=== PATIENT | male | born 1975 | race American Indian/Alaskan Native ===

== ENCOUNTER 2017-07-16 23:36 | Emergency (ER) | payer OTHER ==
[2017-07-17 00:43] LABS: Basophils % (Auto) 0.6 % (0.0-1.8); Eosinophils % (Auto) 1.7 % (0.0-4.3); Hematocrit 49.3 % (35.5-45.6); Hemoglobin 15.9 gm/dl (11.8-15.2); Mean Corpuscular HGB Conc 32 % (32-34); Mean Corpuscular Hemoglobin 28 pg (28-32); Mean Corpuscular Volume 88 fl (84-94); Platelet Count 262 K/mm3 (140-440); Red Blood Count 5.63 M/mm3 (3.65-5.03); Red Cell Distribution Width 13.9 % (13.2-15.2); White Blood Count 9.3 K/mm3 (4.5-11.0)
[2017-07-17 00:57] LABS: Anion Gap 20 mmol/L; BUN/Creatinine Ratio 14.61; Blood Urea Nitrogen 19 mg/dL (9-20); Calcium 9.2 mg/dL (8.4-10.2); Carbon Dioxide 24 mmol/L (22-30); Chloride 100.9 mmol/L (98-107); Glucose 86 mg/dL (75-100); Potassium 4.2 mmol/L (3.6-5.0); Sodium 141 mmol/L (137-145)
[2017-07-17 02:47] LABS: Urine Drugs of Abuse Note Disclamer
[2017-07-17 03:00] LABS: Bilirubin,Urine NEG (Negative); Blood,Urine NEG (Negative); Ketones,Urine NEG (Negative); Leukocyte Esterase,Urine NEG (Negative); Mucus,Urine 2+ /HPF; Nitrite,Urine NEG (Negative); Protein,Urine <15 mg/dL mg/dL (Negative)
--- NOTE | 2017-07-17 06:32 | Emergency Department Report ---
ED Psych HPI - General Chief Complaint: Psych Stated Complaint: MH Time Seen by Provider: 07/17/17 06:22 Source: patient Mode of arrival: Ambulatory - History of Present Illness Initial Comments: 42 years old male history of bipolar disorder he is out of his medication for the last 2 years coming today with his his brother was a chief complaint of suicidal ideation and attempt to try to cut his left wrist. His brother stopped him. Patient denied any homicidal ideation. Denied any visual or auditory hallucination. No other complaints. MD Complaint: suicidal ideation, feels depressed -: Gradual Associated Psychiatric Symptoms: depression, suicidal ideation History of same: Yes Quality: constant Context: recent drug abuse If Self Harm: admits thoughts of, has plan, has acted on plan, self-inflicted trauma - Related Data Home Medications Medication Instructions Recorded Confirmed Last Taken No Known Home Medications [No 07/17/17 07/17/17 Unknown Reported Home Medications] Allergies Allergy/AdvReac Type Severity Reaction Status Date / Time sulfamethoxazole Allergy Shortness Verified 07/16/17 23:55 [From Bactrim] of Breath trimethoprim [From Bactrim] Allergy Shortness Verified 07/16/17 23:55 of Breath ED Review of Systems ROS: Stated complaint: MH Other details as noted in HPI Comment: All other systems reviewed and negative Constitutional: denies: chills, fever ENT: denies: throat pain Respiratory: denies: cough, orthopnea, shortness of breath, SOB with exertion Cardiovascular: denies: chest pain, palpitations Gastrointestinal: denies: abdominal pain, nausea, vomiting Neurological: denies: headache, weakness ED Past Medical Hx - Past Medical History Previous Medical History?: Yes Hx Psychiatric Treatment: Yes - Surgical History Past Surgical History?: No - Social History Smoking Status: Never Smoker Substance Use Type: None - Medications Home Medications: Home Medications Medication Instructions Recorded Confirmed Last Taken Type No Known Home Medications [No 07/17/17 07/17/17 Unknown History Reported Home Medications] ED Physical Exam - General Limitations: No Limitations General appearance: alert - Head Head exam: Present: atraumatic - Eye Eye exam: Present: normal appearance - ENT ENT exam: Present: normal exam - Neck Neck exam: Present: normal inspection. Absent: tenderness - Respiratory Respiratory exam: Present: normal lung sounds bilaterally. Absent: wheezes, rales - Cardiovascular Cardiovascular Exam: Present: regular rate, normal rhythm, normal heart sounds - GI/Abdominal GI/Abdominal exam: Present: soft. Absent: tenderness, guarding, rebound - Extremities Exam Extremities exam: Present: other (left wrist abrasions) - Neurological Exam Neurological exam: Present: alert, oriented X3, CN II-XII intact - Psychiatric Psychiatric exam: Present: depressed, manic, suicidal ideation. Absent: agitated, homicidal ideation - Skin Skin exam: Present: warm, intact ED Course Vital Signs 07/16/17 07/17/17 07/17/17 23:51 06:27 07:44 Temperature 99.1 F 98.8 F Pulse Rate 84 73 Respiratory 17 16 18 Rate Blood Pressure 127/78 Blood Pressure 116/57 [Left] O2 Sat by Pulse 99 100 99 Oximetry ED Medical Decision Making - Lab Data Result diagrams: 07/17/17 00:08 07/17/17 00:08 Critical care attestation.: If time is entered above; I have spent that time in minutes in the direct care of this critically ill patient, excluding procedure time. ED Disposition Clinical Impression: Acute psychosis, Suicidal ideation Disposition: [id number]/TX-65 PSY HOSP/PSY UNIT Is pt being admited?: No Condition: Stable Referrals: PRIMARY CARE, [Primary Care Provider] - 3-5 Days
--- NOTE | 2017-07-18 15:41 | Consultation ---
History of Present Illness - Reason for Consult Consult date: 07/18/17 Reason for consult: Mental Health Evaluation Requesting physician: SHANT COELHO - Chief Complaint Chief complaint: "I need help" - History of Present Psychiatric Illness 42 years old male history of bipolar disorder. Patient is presenting to [facility] for SI's and self injury (superficial lacerations on his left FA). Today patient is calm and cooperative during the assessment. He stated that he have not taking his medications (Risperal/Remeron) for 2 years. He stated that he was thinking about his mother who last year and had a psychotic breakdown ( psychotic behavior). He stated that he broke items throughout his brother's home. He stated that the voices was telling him to be violent and kill himself. He stated that his SI's have decreased since yesterday. He stated that he hear whispered (AH's) currently. During our conversation, the patient would cover his ears, possibly responding to some type of stimuli. He stated that he cut himself to prevent from harming other people. He denies HI's and VH's. He admitted having erratic sleep, but denies a poor appetite. He admit to smoking marijuana often, but stated he used cocaine recently to stop the voices. He denies excessive alcohol consumption (etoh). Medications and Allergies Allergies Allergy/AdvReac Type Severity Reaction Status Date / Time sulfamethoxazole Allergy Shortness Verified 07/16/17 23:55 [From Bactrim] of Breath trimethoprim [From Bactrim] Allergy Shortness Verified 07/16/17 23:55 of Breath Home Medications Medication Instructions Recorded Confirmed Last Taken Type No Known Home Medications [No 07/17/17 07/17/17 Unknown History Reported Home Medications] Past psychiatric history - Past Medical History Past Medical History: No medical history Past Surgical History: No surgical history - past Psychiatric treatment and history Psych: Bipolar psychiatric treatment history: Hospitalized 2 yrs ago for inpatient pys services. Denies a fam psy hx. - Social History Social history: lives with family Mental Status Exam - Vital signs Last Vital Signs Temp 98.4 F 07/18/17 13:34 Pulse 76 07/18/17 13:34 Resp 18 07/18/17 13:35 BP 112/68 07/18/17 13:34 Pulse Ox 96 07/18/17 13:35 - Exam Narrative exam: ROS: (+) psychosis MSE: Appearance: calm, cooperative Behavior: regular eye contact Speech: regular rate and tone Mood: "I don't feel well" Affect: labile Thought Process: linear Thought Content: denies HI's and VH's Motor Activity: ambulatory Cognition: A/Ox 3 Insight: variable Judgment: variable Results Result Diagrams: 07/17/17 00:08 07/17/17 00:08 All other labs normal. Assessment and Plan Assessment and plan: Impression: Historical Dx: Bipolar DO. Unspecified Mood Do with psychotic features. Substance Use DO (marijuana, cocaine, barbiturates). Today patient is calm and cooperative during the assessment. Active AH's. Positive for barbiturates, marijuana, and cocaine. DDx: Schizoaffective DO Recommendation/Plan: Continue 1013 with placement to inpatient psy services. Start Risperdal 1 mg PO for mood/psychotic symptoms, Remeron 15 mg PO HS for sleep consolidation, and Cogentin 0.5 mg PO HS for EPS prevention. Discussed possible metabolic side effects reference Risperdal. Discussed possible suicidality/medication induced bert with patient reference Remeron.
[2017-07-18] MEDS ORDERED: MOTRIN ONE (16:58)
[2017-07-18] MEDS ORDERED: MOTRIN PO ONE (17:09)
[2017-07-18] MEDS: COGENTIN PO SCH (22:06)
[2017-07-18] MEDS: REMERON PO SCH (22:06)
[2017-07-18] MEDS: RisperDAL PO SCH (22:06)
--- NOTE | 2017-07-19 13:53 | Progress Note ---
Subjective - Reason for Consult Consult date: 07/19/17 Reason for consult: Psychiatry Follow-up - Chief Complaint Chief complaint: "The voices had decreased" 42 years old male history of bipolar disorder. Patient is presenting to [facility] for SI's and self injury (superficial lacerations on his left FA). Today patient is calm and cooperative during the assessment. He stated that the voices has decreased, but still have passive SI's. He stated "resting well" last night for the first time in a several days. He denies HI's and VH's. He denies a poor appetite. He denies any side effects of his medications. Mental Status Exam - Vital signs Last Vital Signs Temp 98 F 07/19/17 03:38 Pulse 72 07/19/17 03:38 Resp 18 07/19/17 03:39 BP 118/78 07/19/17 03:38 Pulse Ox 98 07/19/17 03:39 - Exam Narrative exam: MSE: Appearance: calm, cooperative Behavior: regular eye contact Speech: regular rate and tone Mood: "I don't feel well" Affect: labile Thought Process: linear Thought Content: denies HI's and VH's Motor Activity: ambulatory Cognition: A/Ox 3 Insight: variable Judgment: variable Assessment and Plan Impression: Historical Dx: Bipolar DO. Unspecified Mood Do with psychotic features. Substance Use DO (marijuana, cocaine, barbiturates). Today patient is calm and cooperative during the assessment. Passive SI's. Positive for barbiturates, marijuana, and cocaine. Recommendation/Plan: Continue 1013 with placement to inpatient psy services. Continue Risperdal 1 mg PO for mood/psychotic symptoms, Remeron 15 mg PO HS for sleep consolidation, and Cogentin 0.5 mg PO HS for EPS prevention. Discussed possible metabolic side effects reference Risperdal. Discussed possible suicidality/medication induced bert with patient reference Remeron.
[2017-07-19] MEDS: COGENTIN PO SCH (22:07)
[2017-07-19] MEDS: RisperDAL PO SCH (22:07)
[2017-07-19] MEDS: REMERON PO SCH (22:07)
--- NOTE | 2017-07-21 11:11 | Progress Note ---
Subjective - Reason for Consult Consult date: 07/21/17 Reason for consult: Psychiatry Follow-up - Chief Complaint Chief complaint: "Hello" 42 years old male history of bipolar disorder. Patient is presenting to [facility] for SI's and self injury (superficial lacerations on his left FA). Today patient is calm and cooperative during the assessment. He stated that the voices has ceased and denies SI's. He stated that he slept "well" last night. He stated that he feel much better than he did "mentally" prior to his admission. He denies SI/HI's, AVH's, and depression. He stated no intentions to cut himself. He denies any side effects of his medications. Mental Status Exam - Vital signs Last Vital Signs Temp 98.8 F 07/19/17 22:30 Pulse 75 07/19/17 22:30 Resp 16 07/19/17 22:30 BP 99/54 07/19/17 22:30 Pulse Ox 99 07/19/17 22:30 - Exam Narrative exam: MSE: Appearance: calm, cooperative Behavior: regular eye contact Speech: regular rate and tone Mood: "a little better" Affect: congruent to mood Thought Process: linear Thought Content: denies SI/HI's and AVH's Motor Activity: ambulatory Cognition: A/Ox 3 Insight: variable Judgment: variable Assessment and Plan Impression: Historical Dx: Bipolar DO. Unspecified Mood Do with psychotic features. Substance Use DO (marijuana, cocaine, barbiturates). Today patient is calm and cooperative during the assessment. Positive for barbiturates, marijuana , and cocaine. Hx of self injury. Recommendation/Plan: Continue 1013 with placement to inpatient psy services. Continue Risperdal 1 mg PO for mood/psychotic symptoms, Remeron 15 mg PO HS for sleep consolidation, and Cogentin 0.5 mg PO HS for EPS prevention. Discussed possible metabolic side effects reference Risperdal. Discussed possible suicidality/medication induced bert with patient reference Remeron.
[2017-07-21] MEDS: COGENTIN PO SCH ×2 (22:40)
[2017-07-21] MEDS: REMERON PO SCH ×2 (22:40)
[2017-07-21] MEDS: RisperDAL PO SCH ×2 (22:40)
--- NOTE | 2017-07-22 12:39 | Progress Note ---
Subjective - Reason for Consult Consult date: 07/22/17 Reason for consult: Psychiatry Follow-up - Chief Complaint Chief complaint: "How are you" 42 years old male history of bipolar disorder. Patient is presenting to [facility] for SI's and self injury (superficial lacerations on his left FA). Today patient is calm and cooperative during the assessment. He stated that he didn't get any sleep last night, but could not say why. He stated being "tired" during the assessment. He stated when he is discharged he will continue to take his medications and seek outpatient psy services. He is aware compliance is abel. He denies SI/HI's, AVH's, and depression. He denies any side effects of his medications. Mental Status Exam - Vital signs Last Vital Signs Temp 98.6 F 07/22/17 09:36 Pulse 97 H 07/22/17 09:36 Resp 16 07/22/17 09:36 BP 121/81 07/22/17 09:36 Pulse Ox 98 07/22/17 09:36 - Exam Narrative exam: MSE: Appearance: calm, cooperative Behavior: regular eye contact Speech: regular rate and tone Mood: "tired" Affect: congruent to mood Thought Process: linear Thought Content: denies SI/HI's and AVH's Motor Activity: ambulatory Cognition: A/Ox 3 Insight: fair Judgment: fair Assessment and Plan Impression: Historical Dx: Bipolar DO. Unspecified Mood Do with psychotic features. Substance Use DO (marijuana, cocaine, barbiturates). Today patient is calm and cooperative during the assessment. Positive for barbiturates, marijuana , and cocaine. Hx of self injury. Recommendation/Plan: Evaluate 1013 to possibly determine proper dispo. Continue Risperdal 1 mg PO for mood/psychotic symptoms, Cogentin 0.5 mg PO HS for EPS prevention, and modify Remeron to 7.5 mg PO HS for sleep consolidation. Discussed possible metabolic side effects reference Risperdal. Discussed possible suicidality/medication induced bert with patient reference Remeron.
[2017-07-22] MEDS: COGENTIN PO SCH (22:00)
[2017-07-22] MEDS: REMERON PO SCH (22:02)
[2017-07-22] MEDS: RisperDAL PO SCH (22:05)
--- NOTE | 2017-07-23 14:46 | Progress Note ---
Subjective - Reason for Consult Consult date: 07/23/17 Reason for consult: follow up - Chief Complaint Chief complaint: "I'm much better." 42 years old male history of bipolar disorder. Patient is presenting to [facility] for SI's and self injury (superficial lacerations on his left FA). Today patient is calm and cooperative during the assessment. He reports getting good sleep last night, and states it seemed to make a big difference in how he feels. He voices intention of seeking outpatient mental health treatment and staying away from illicit substances. He is aware of the need to take his medications. He denies SI/HI's, AVH's, and depression. He denies any side effects of his medications. Mental Status Exam - Vital signs Last Vital Signs Temp 98.6 F 07/22/17 09:36 Pulse 97 H 07/22/17 09:36 Resp 16 07/22/17 09:36 BP 121/81 07/22/17 09:36 Pulse Ox 98 07/22/17 09:36 - Exam Narrative exam: MSE: Appearance: calm, cooperative Behavior: regular eye contact Speech: regular rate and tone Mood: "good" Affect: congruent to mood Thought Process: linear Thought Content: denies SI/HI's and AVH's Motor Activity: ambulatory Cognition: A/Ox 3 Insight: fair Judgment: fair Assessment and Plan Impression: Historical Dx: Bipolar DO. Unspecified Mood Do with psychotic features. Substance Use DO (marijuana, cocaine, barbiturates). Today patient is calm and cooperative during the assessment. On admission, he was positive for barbiturates, marijuana, and cocaine. He consistently denies suicidal ideation. Psychotic symptoms have resolved and were likely influenced by substance use. He voiced his intention of following up with outpatient mental health to stay on medication. He plans to stay with his brother [place], [phone]. Recommendation/Plan: Continue Risperdal 1 mg PO for mood/psychotic symptoms, Cogentin 0.5 mg PO HS for EPS prevention, and modify Remeron to 7.5 mg PO HS for sleep consolidation. Risk of self harm is low. Plan to rescind the 1013 and provide outpatient mental health referrals, such as to the [facility]. His brother is not willing to take him back at his house and says he may can get help from his other brothers.
[2017-07-23] MEDS: REMERON PO SCH (22:10)
[2017-07-23] MEDS: RisperDAL PO SCH (22:10)
[2017-07-23] MEDS: COGENTIN PO SCH (22:14)
--- NOTE | 2017-07-24 16:44 | Progress Note ---
Subjective - Reason for Consult Consult date: 07/24/17 Reason for consult: follow up - Chief Complaint Chief complaint: "I'm much better." 42 years old male history of bipolar disorder. Patient is presenting to [facility] for SI's and self injury (superficial lacerations on his left FA). Today patient is calm and cooperative during the assessment. He reports getting good sleep last night, and states it seemed to make a big difference in how he feels. He voices intention of seeking outpatient mental health treatment and staying away from illicit substances. He is aware of the need to take his medications. He denies SI/HI's, AVH's, and depression. He denies any side effects of his medications. His condition is unchanged from the previous day. He maintains denial of SI/HI or psychotic symptoms. He expresses intention of following up with outpatient mental health. He is unable to go to his brother's house. He reached out to another family member and is able to go there. Mental Status Exam - Vital signs Last Vital Signs Temp 98.1 F 07/23/17 22:00 Pulse 78 07/23/17 22:00 Resp 18 07/23/17 22:00 BP 175/92 07/23/17 22:00 Pulse Ox 97 07/23/17 22:00 - Exam Narrative exam: MSE: Appearance: calm, cooperative Behavior: regular eye contact Speech: regular rate and tone Mood: "good" Affect: congruent to mood Thought Process: linear Thought Content: denies SI/HI's and AVH's Motor Activity: ambulatory Cognition: A/Ox 3 Insight: fair Judgment: fair Assessment and Plan Impression: Historical Dx: Bipolar DO. Unspecified Mood Do with psychotic features. Substance Use DO (marijuana, cocaine, barbiturates). Today patient is calm and cooperative during the assessment. On admission, he was positive for barbiturates, marijuana, and cocaine. He consistently denies suicidal ideation. Psychotic symptoms have resolved and were likely influenced by substance use. He voiced his intention of following up with outpatient mental health to stay on medication. His 1013 expires today and will not be renewed. Recommendation/Plan: Continue Risperdal 1 mg PO for mood/psychotic symptoms, Cogentin 0.5 mg PO HS for EPS prevention, and continue Remeron to 7.5 mg PO HS for sleep consolidation. Follow up at the [facility]. Crisis line information also provided with instructions to call for SI/HI or distressing psychotic symptoms.
--- NOTE | 2017-07-24 17:35 | Event Note ---
Date: 07/24/17 The patient is seen and examined by myself. He is afebrile, with reassuring vital signs, pleasant, and cooperative. He is not homicidal or suicidal, and is not experiencing hallucinations. Has 1013 has , and he does not require reinitiation of 1013. Patient will be discharged with one week of his psychiatric medications as recommended, and he is instructed to follow-up at the outpatient clinic Center. Return precautions are reviewed. Has no medical complaints at this time. Vital Signs 07/16/17 07/17/17 07/17/17 23:51 06:27 07:44 Temperature 99.1 F 98.8 F Pulse Rate 84 73 Respiratory 17 16 18 Rate Blood Pressure 127/78 Blood Pressure 116/57 [Left] O2 Sat by Pulse 99 100 99 Oximetry 07/17/17 07/18/17 07/18/17 21:30 13:34 13:35 Temperature 98.0 F 98.4 F Pulse Rate 68 76 Respiratory 18 18 18 Rate Blood Pressure Blood Pressure 130/83 112/68 [Left] O2 Sat by Pulse 99 96 96 Oximetry 07/18/17 07/18/17 07/18/17 19:00 19:45 21:03 Temperature 98 F Pulse Rate 77 Respiratory 20 18 Rate Blood Pressure Blood Pressure 113/74 [Left] O2 Sat by Pulse 100 Oximetry 07/19/17 07/19/17 07/19/17 03:38 03:39 08:40 Temperature 98 F 98.5 F Pulse Rate 72 78 Respiratory 18 18 20 Rate Blood Pressure Blood Pressure 118/78 119/79 [Left] O2 Sat by Pulse 97 98 98 Oximetry 07/19/17 07/19/17 07/21/17 17:39 22:30 10:00 Temperature 98.8 F 98.7 F Pulse Rate 75 73 Respiratory 18 16 22 Rate Blood Pressure Blood Pressure 99/54 99/71 [Left] O2 Sat by Pulse 99 97 Oximetry 07/21/17 07/21/17 07/22/17 13:35 22:41 09:36 Temperature 98.6 F Pulse Rate 78 97 H Respiratory 22 17 16 Rate Blood Pressure Blood Pressure 120/78 121/81 [Left] O2 Sat by Pulse 97 98 98 Oximetry 07/23/17 22:00 Temperature 98.1 F Pulse Rate 78 Respiratory 18 Rate Blood Pressure Blood Pressure 175/92 [Left] O2 Sat by Pulse 97 Oximetry Lab Results 07/17/17 07/17/17 07/17/17 Range/Units 00:08 00:08 00:08 WBC 9.3 (4.5-11.0) K/mm3 RBC 5.63 H (3.65-5.03) M/mm3 Hgb 15.9 H (11.8-15.2) gm/dl Hct 49.3 H (35.5-45.6) % MCV 88 (84-94) fl MCH 28 (28-32) pg MCHC 32 (32-34) % RDW 13.9 (13.2-15.2) % Plt Count 262 (140-440) K/mm3 Lymph % (Auto) 20.2 (13.4-35.0) % Mathews % (Auto) 7.6 H (0.0-7.3) % Eos % (Auto) 1.7 (0.0-4.3) % Baso % (Auto) 0.6 (0.0-1.8) % Lymph # 1.9 (1.2-5.4) K/mm3 Mathews # 0.7 (0.0-0.8) K/mm3 Eos # 0.2 (0.0-0.4) K/mm3 Baso # 0.1 (0.0-0.1) K/mm3 Seg Neutrophils % 69.9 (40.0-70.0) % Seg Neutrophils # 6.5 (1.8-7.7) K/mm3 Sodium 141 (137-145) mmol/L Potassium 4.2 (3.6-5.0) mmol/L Chloride 100.9 (98-107) mmol/L Carbon Dioxide 24 (22-30) mmol/L Anion Gap 20 mmol/L BUN 19 (9-20) mg/dL Creatinine 1.3 (0.8-1.5) mg/dL Estimated GFR > 60 ml/min BUN/Creatinine Ratio 14.61 % Glucose 86 (75-100) mg/dL Calcium 9.2 (8.4-10.2) mg/dL Urine Color (Yellow) Urine Turbidity (Clear) Urine pH (5.0-7.0) Ur Specific Shevlin (1.003-1.030) Urine Protein (Negative) mg/dL Urine Glucose (UA) (Negative) mg/dL Urine Ketones (Negative) mg/dL Urine Blood (Negative) Urine Nitrite (Negative) Urine Bilirubin (Negative) Urine Urobilinogen (<2.0) mg/dL Ur Leukocyte Esterase (Negative) Urine WBC (Auto) (0.0-6.0) /HPF Urine RBC (Auto) (0.0-6.0) /HPF U Epithel Cells (Auto) (0-13.0) /HPF Hyaline Casts /LPF Urine Mucus /HPF Urine Opiates Screen Urine Methadone Screen Ur Barbiturates Screen Ur Phencyclidine Scrn Ur Amphetamines Screen U Benzodiazepines Scrn Urine Cocaine Screen U Marijuana (THC) Screen Drugs of Abuse Note Plasma/Serum Alcohol < 0.01 (0-0.07) gm% 07/17/17 07/17/17 Range/Units 02:20 02:20 WBC (4.5-11.0) K/mm3 RBC (3.65-5.03) M/mm3 Hgb (11.8-15.2) gm/dl Hct (35.5-45.6) % MCV (84-94) fl MCH (28-32) pg MCHC (32-34) % RDW (13.2-15.2) % Plt Count (140-440) K/mm3 Lymph % (Auto) (13.4-35.0) % Mathews % (Auto) (0.0-7.3) % Eos % (Auto) (0.0-4.3) % Baso % (Auto) (0.0-1.8) % Lymph # (1.2-5.4) K/mm3 Mathews # (0.0-0.8) K/mm3 Eos # (0.0-0.4) K/mm3 Baso # (0.0-0.1) K/mm3 Seg Neutrophils % (40.0-70.0) % Seg Neutrophils # (1.8-7.7) K/mm3 Sodium (137-145) mmol/L Potassium (3.6-5.0) mmol/L Chloride (98-107) mmol/L Carbon Dioxide (22-30) mmol/L Anion Gap mmol/L BUN (9-20) mg/dL Creatinine (0.8-1.5) mg/dL Estimated GFR ml/min BUN/Creatinine Ratio % Glucose (75-100) mg/dL Calcium (8.4-10.2) mg/dL Urine Color Yellow (Yellow) Urine Turbidity Clear (Clear) Urine pH 6.0 (5.0-7.0) Ur Specific [place]vlin 1.026 (1.003-1.030) Urine Protein <15 mg/dl (Negative) mg/dL Urine Glucose (UA) Neg (Negative) mg/dL Urine Ketones Neg (Negative) mg/dL Urine Blood Neg (Negative) Urine Nitrite Neg (Negative) Urine Bilirubin Neg (Negative) Urine Urobilinogen 2.0 (<2.0) mg/dL Ur Leukocyte Esterase Neg (Negative) Urine WBC (Auto) 2.0 (0.0-6.0) /HPF Urine RBC (Auto) 5.0 (0.0-6.0) /HPF U Epithel Cells (Auto) < 1.0 (0-13.0) /HPF Hyaline Casts 1 /LPF Urine Mucus 2+ /HPF Urine Opiates Screen Presumptive negative Urine Methadone Screen Presumptive negative Ur Barbiturates Screen Presumptive positive Ur Phencyclidine Scrn Presumptive negative Ur Amphetamines Screen Presumptive negative U Benzodiazepines Scrn Presumptive negative Urine Cocaine Screen Presumptive positive U Marijuana (THC) Screen Presumptive positive Drugs of Abuse Note Disclamer Plasma/Serum Alcohol (0-0.07) gm%
[2017-07-24 17:48] VITALS: BP 118/84
== END 2017-07-24 18:04 ==
LOC: EEVIPCON 23:36 → ED 23:36
DX: R45.851 Suicidal ideations (principal); F23 Brief psychotic disorder; Z88.1 Allergy status to other antibiotic agents
CPT/HCPCS: 36415; 80048; 80307; 81001; 85025; 99285; G0480; 80320

== ENCOUNTER 2017-12-16 21:54 | Emergency (ER) | payer SELFPAY ==
[2017-12-17 03:29] LABS: Basophils % (Auto) 0.5 % (0.0-1.8); Eosinophils # (Auto) 0.1 K/mm3 (0.0-0.4); Eosinophils % (Auto) 0.6 % (0.0-4.3); Hematocrit 51.7 % (35.5-45.6); Hemoglobin 17.2 gm/dl (11.8-15.2); Lymphocytes # (Auto) 2.8 K/mm3 (1.2-5.4); Lymphocytes % (Auto) 27.7 % (13.4-35.0); Mean Corpuscular HGB Conc 33 % (32-34); Mean Corpuscular Hemoglobin 29 pg (28-32); Mean Corpuscular Volume 86 fl (84-94); Monocytes # (Auto) 0.7 K/mm3 (0.0-0.8); Monocytes % (Auto) 6.8 % (0.0-7.3); Platelet Count 238 K/mm3 (140-440); Red Blood Count 6.03 M/mm3 (3.65-5.03); Red Cell Distribution Width 13.6 % (13.2-15.2)
[2017-12-17 03:49] LABS: BUN/Creatinine Ratio 13; Blood Urea Nitrogen 15 mg/dL (9-20); Hemolysis Index 7
[2017-12-17 07:57] LABS: Bacteria,Urine 1+ /HPF (Negative); Mucus,Urine 3+ /HPF
[2017-12-17 08:01] LABS: Amphetamine Screen,Urine PRESUMPTIVE NEGATIVE; Benzodiazepines Screen,Urine PRESUMPTIVE NEGATIVE; Cocaine Screen,Urine PRESUMPTIVE NEGATIVE; Methadone Screen,Urine PRESUMPTIVE NEGATIVE; Opiate Screen,Urine PRESUMPTIVE NEGATIVE
[2017-12-17 08:23] LABS: Cannabinoid Screen,Urine PRESUMPTIVE POSITIVE
[2017-12-17 08:40] LABS: Bilirubin,Urine Negative (Negative); Blood,Urine Negative (Negative); Color,Urine Yellow (Yellow)
[2017-12-17 08:41] LABS: Protein,Urine <15 mg/dL mg/dL (Negative)
[2017-12-17 08:47] LABS: Nitrite,Urine Negative (Negative)
[2017-12-17] MEDS ORDERED: LEVAQUIN PO ONE (13:41)
[2017-12-17] MEDS ORDERED: MACROBID PO ONE (13:44)
--- NOTE | 2017-12-17 13:49 | Emergency Department Report ---
ED Psych HPI - General Chief Complaint: Psych Stated Complaint: MH Time Seen by Provider: 12/17/17 09:17 Source: patient Mode of arrival: Stretcher Limitations: No Limitations - History of Present Illness Initial Comments: 42-year-old male with past medical history of bipolar disorder and delusional personality disorder presents to the Hospital stating that he is having a mental break. Patient states he is homeless. Prior to being homeless he lived with his mother who in his arms last fall leading to a previous "mental breakdown". Patient states he is sad about his mother's passing and is having the urge to cut himself again. Patient states he hears voices at times but denies visual hallucinations. He denies suicidal or homicidal ideation. No physical complaints reported. - Related Data Previous Rx's Medication Instructions Recorded Last Taken Type Benztropine [Cogentin] 0.5 mg PO QHS #7 tablet 07/24/17 Unknown Rx Mirtazapine [Remeron] 7.5 mg PO QHS #4 tablet 07/24/17 Unknown Rx risperiDONE [RisperDAL] 1 mg PO QHS #7 tablet 07/24/17 Unknown Rx Allergies Allergy/AdvReac Type Severity Reaction Status Date / Time sulfamethoxazole Allergy Shortness Verified 07/18/17 16:44 [From Bactrim] of Breath trimethoprim [From Bactrim] Allergy Shortness Verified 07/18/17 16:44 of Breath ED Review of Systems ROS: Stated complaint: MH Other details as noted in HPI Comment: All other systems reviewed and negative Other: Constitutional: No fevers chills Eyes: No eye pain visual changes or discharge ENT: No ear pain or throat pain Neck: Denies pain Respiratory: Denies cough wheezing shortness of breath Cardiovascular: Denies chest pain, palpitations, syncope GI: Denies abdominal pain, nausea, vomiting, diarrhea : Denies dysuria Musculoskeletal: Denies back pain, joint swelling Skin: Denies rash, lesions, erythema Neurologic: Denies headache, numbness, weakness Psych: as per hpi ED Past Medical Hx - Past Medical History Previous Medical History?: Yes Hx Psychiatric Treatment: Yes (Bi-polar, delusional personality) - Social History Smoking Status: Current Every Day Smoker Substance Use Type: Alcohol - Medications Home Medications: Home Medications Medication Instructions Recorded Confirmed Last Taken Type Benztropine [Cogentin] 0.5 mg PO QHS #7 tablet 07/24/17 Unknown Rx Mirtazapine [Remeron] 7.5 mg PO QHS #4 tablet 07/24/17 Unknown Rx risperiDONE [RisperDAL] 1 mg PO QHS #7 tablet 07/24/17 Unknown Rx ED Physical Exam - General Limitations: No Limitations - Other Other exam information: General: No limitations, patient is alert in no acute distress Head exam: Atraumatic, normocephalic Eyes exam: Normal appearance ENT: Moist mucous membrane, normal oropharynx Neck exam: Normal inspection, full range of motion Respiratory exam: Clear to auscultation bilateral, no wheezes, rales, crackles Cardiovascular: Normal rate and rhythm, normal heart sounds Abdomen: Soft, nondistended, and nontender, with normal bowel sounds, no rebound, or guarding Extremity: Full range of motion normal inspection no deformity Back: Normal Inspection, full range of motion, no tenderness Neurologic: Alert, oriented x3, cranial nerves intact, no motor or sensory deficit Psychiatric: depressed affect Skin: Warm, dry, intact ED Course Vital Signs 12/17/17 01:49 Temperature 98.3 F Pulse Rate 74 Respiratory 20 Rate Blood Pressure 113/79 [Left] - Reevaluation(s) Reevaluation #1: 12/17/17 14:13 pt stable and coorperative - Consultations Consultation #1: 12/17/17 14:13 MH evaluation ED Medical Decision Making - Lab Data Result diagrams: 12/17/17 03:12 12/17/17 03:12 Lab Results 12/17/17 12/17/17 12/17/17 Range/Units 03:12 03:12 03:12 WBC (4.5-11.0) K/mm3 RBC (3.65-5.03) M/mm3 Hgb (11.8-15.2) gm/dl Hct (35.5-45.6) % MCV (84-94) fl MCH (28-32) pg MCHC (32-34) % RDW (13.2-15.2) % Plt Count (140-440) K/mm3 Lymph % (Auto) (13.4-35.0) % Lamb % (Auto) (0.0-7.3) % Eos % (Auto) (0.0-4.3) % Baso % (Auto) (0.0-1.8) % Lymph # (1.2-5.4) K/mm3 Lamb # (0.0-0.8) K/mm3 Eos # (0.0-0.4) K/mm3 Baso # (0.0-0.1) K/mm3 Seg Neutrophils % (40.0-70.0) % Seg Neutrophils # (1.8-7.7) K/mm3 Sodium 139 (137-145) mmol/L Potassium 4.5 (3.6-5.0) mmol/L Chloride 100.5 (98-107) mmol/L Carbon Dioxide 25 (22-30) mmol/L Anion Gap 18 mmol/L BUN 15 (9-20) mg/dL Creatinine 1.2 (0.8-1.5) mg/dL Estimated GFR > 60 ml/min BUN/Creatinine Ratio 13 % Glucose 83 (75-100) mg/dL Calcium 9.0 (8.4-10.2) mg/dL Urine Color (Yellow) Urine Turbidity (Clear) Urine pH (5.0-7.0) Ur Specific [place] (1.003-1.030) Urine Protein (Negative) mg/dL Urine Glucose (UA) (Negative) mg/dL Urine Ketones (Negative) mg/dL Urine Blood (Negative) Urine Nitrite (Negative) Ur Reducing Substances Urine Bilirubin (Negative) Urine Ictotest Urine Urobilinogen (<2.0) mg/dL Ur Leukocyte Esterase (Negative) Urine WBC (Auto) (0.0-6.0) /HPF Urine RBC (Auto) (0.0-6.0) /HPF U Epithel Cells (Auto) (0-13.0) /HPF Urine Bacteria (Auto) (Negative) /HPF Urine Mucus /HPF Salicylates < 0.3 L (2.8-20.0) mg/dL Urine Opiates Screen Urine Methadone Screen Acetaminophen 15.0 (10.0-30.0) ug/mL Ur Barbiturates Screen Ur Phencyclidine Scrn Ur Amphetamines Screen U Benzodiazepines Scrn Urine Cocaine Screen U Marijuana (THC) Screen Drugs of Abuse Note Plasma/Serum Alcohol (0-0.07) % 12/17/17 12/17/17 12/17/17 Range/Units 03:12 03:12 06:49 WBC 10.2 (4.5-11.0) K/mm3 RBC 6.03 H (3.65-5.03) M/mm3 Hgb 17.2 H (11.8-15.2) gm/dl Hct 51.7 H (35.5-45.6) % MCV 86 (84-94) fl MCH 29 (28-32) pg MCHC 33 (32-34) % RDW 13.6 (13.2-15.2) % Plt Count 238 (140-440) K/mm3 Lymph % (Auto) 27.7 (13.4-35.0) % Lamb % (Auto) 6.8 (0.0-7.3) % Eos % (Auto) 0.6 (0.0-4.3) % Baso % (Auto) 0.5 (0.0-1.8) % Lymph # 2.8 (1.2-5.4) K/mm3 Lamb # 0.7 (0.0-0.8) K/mm3 Eos # 0.1 (0.0-0.4) K/mm3 Baso # 0.0 (0.0-0.1) K/mm3 Seg Neutrophils % 64.4 (40.0-70.0) % Seg Neutrophils # 6.6 (1.8-7.7) K/mm3 Sodium (137-145) mmol/L Potassium (3.6-5.0) mmol/L Chloride (98-107) mmol/L Carbon Dioxide (22-30) mmol/L Anion Gap mmol/L BUN (9-20) mg/dL Creatinine (0.8-1.5) mg/dL Estimated GFR ml/min BUN/Creatinine Ratio % Glucose (75-100) mg/dL Calcium (8.4-10.2) mg/dL Urine Color Yellow (Yellow) Urine Turbidity Clear (Clear) Urine pH 5.0 (5.0-7.0) Ur Specific [place] 1.014 (1.003-1.030) Urine Protein <15 mg/dl (Negative) mg/dL Urine Glucose (UA) Negative (Negative) mg/dL Urine Ketones Negative (Negative) mg/dL Urine Blood Negative (Negative) Urine Nitrite Negative (Negative) Ur Reducing Substances Not Reportable Urine Bilirubin Negative (Negative) Urine Ictotest Not Reportable Urine Urobilinogen 0.0 (<2.0) mg/dL Ur Leukocyte Esterase Large (Negative) Urine WBC (Auto) 14.0 H (0.0-6.0) /HPF Urine RBC (Auto) 6.0 (0.0-6.0) /HPF U Epithel Cells (Auto) < 1.0 (0-13.0) /HPF Urine Bacteria (Auto) 1+ (Negative) /HPF Urine Mucus 3+ /HPF Salicylates (2.8-20.0) mg/dL Urine Opiates Screen Urine Methadone Screen Acetaminophen (10.0-30.0) ug/mL Ur Barbiturates Screen Ur Phencyclidine Scrn Ur Amphetamines Screen U Benzodiazepines Scrn Urine Cocaine Screen U Marijuana (THC) Screen Drugs of Abuse Note Plasma/Serum Alcohol < 0.01 (0-0.07) % 12/17/17 Range/Units 06:49 WBC (4.5-11.0) K/mm3 RBC (3.65-5.03) M/mm3 Hgb (11.8-15.2) gm/dl Hct (35.5-45.6) % MCV (84-94) fl MCH (28-32) pg MCHC (32-34) % RDW (13.2-15.2) % Plt Count (140-440) K/mm3 Lymph % (Auto) (13.4-35.0) % Lamb % (Auto) (0.0-7.3) % Eos % (Auto) (0.0-4.3) % Baso % (Auto) (0.0-1.8) % Lymph # (1.2-5.4) K/mm3 Lamb # (0.0-0.8) K/mm3 Eos # (0.0-0.4) K/mm3 Baso # (0.0-0.1) K/mm3 Seg Neutrophils % (40.0-70.0) % Seg Neutrophils # (1.8-7.7) K/mm3 Sodium (137-145) mmol/L Potassium (3.6-5.0) mmol/L Chloride (98-107) mmol/L Carbon Dioxide (22-30) mmol/L Anion Gap mmol/L BUN (9-20) mg/dL Creatinine (0.8-1.5) mg/dL Estimated GFR ml/min BUN/Creatinine Ratio % Glucose (75-100) mg/dL Calcium (8.4-10.2) mg/dL Urine Color (Yellow) Urine Turbidity (Clear) Urine pH (5.0-7.0) Ur Specific [place] (1.003-1.030) Urine Protein (Negative) mg/dL Urine Glucose (UA) (Negative) mg/dL Urine Ketones (Negative) mg/dL Urine Blood (Negative) Urine Nitrite (Negative) Ur Reducing Substances Urine Bilirubin (Negative) Urine Ictotest Urine Urobilinogen (<2.0) mg/dL Ur Leukocyte Esterase (Negative) Urine WBC (Auto) (0.0-6.0) /HPF Urine RBC (Auto) (0.0-6.0) /HPF U Epithel Cells (Auto) (0-13.0) /HPF Urine Bacteria (Auto) (Negative) /HPF Urine Mucus /HPF Salicylates (2.8-20.0) mg/dL Urine Opiates Screen Presumptive negative Urine Methadone Screen Presumptive negative Acetaminophen (10.0-30.0) ug/mL Ur Barbiturates Screen Presumptive negative Ur Phencyclidine Scrn Presumptive negative Ur Amphetamines Screen Presumptive negative U Benzodiazepines Scrn Presumptive negative Urine Cocaine Screen Presumptive negative U Marijuana (THC) Screen Presumptive positive Drugs of Abuse Note Disclamer Plasma/Serum Alcohol (0-0.07) % - Medical Decision Making self harming ideation hx of cutting himself 1013 and transfer form signed + uti will treat with Macrobid pt medically cleared. uds + for thc - Differential Diagnosis psychosis, si, hi, borderline, depression Critical Care Time: No Critical care attestation.: If time is entered above; I have spent that time in minutes in the direct care of this critically ill patient, excluding procedure time. ED Disposition Clinical Impression: Self-harming behavior, UTI (urinary tract infection), Psychosis Disposition: [id number]/TX-65 PSY HOSP/PSY UNIT Is pt being admited?: No Condition: Stable Time of Disposition: 14:16 (awaiting acceptance)
[2017-12-17] MEDS: MACROBID PO SCH (23:31)
[2017-12-18] MEDS: MACROBID PO SCH ×2 (10:46→22:29)
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
[2017-12-18] MEDS: COGENTIN PO SCH (22:29)
[2017-12-18] MEDS: RisperDAL PO SCH (22:29)
[2017-12-18] MEDS: REMERON PO SCH (22:29)
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
[2017-12-19] MEDS: MACROBID PO SCH ×2 (12:38→22:51)
[2017-12-19] MEDS: RisperDAL PO SCH (22:51)
[2017-12-19] MEDS: REMERON PO SCH (22:51)
[2017-12-19] MEDS: COGENTIN PO SCH (22:51)
--- NOTE | 2017-12-20 10:17 | Progress Note ---
Subjective - Reason for Consult Consult date: 12/20/17 Reason for consult: Psychiatry Follow-up - Chief Complaint Chief complaint: "I sleep okay" 42-year-old male with past medical history of bipolar disorder, remote history of alcohol use disorder, and current cocaine use disorder presents to the hospital stating that he is having a mental break. This patient is known to me. Today the patient is calm and cooperative during the assessment. He was more lucid today than previous interviews. He stated that his SI's are "decreasing" and he is no longer hearing voices. He stated that he will need a place to stay when discharged. He denies any side effects of his medications. Mental Status Exam - Vital signs Last Vital Signs Temp 98.2 F 12/19/17 14:39 Pulse 83 12/19/17 14:39 Resp 20 12/20/17 08:55 BP 110/66 12/19/17 14:39 Pulse Ox 100 12/20/17 08:55 - Exam Narrative exam: MSE: Appearance: calm, cooperative Behavior: regular eye contact Speech: regular rate and tone Mood: "okay" Affect: congruent to mood Thought Process: circumstantial Thought Content: denies HI's and AVH's, intermittent SI's Motor Activity: ambulatory Cognition: A/O x 3 Insight: variable Judgment: variable Assessment and Plan Impression: Hx of Bipolar DO. Cannabis Use DO. Today the patient is calm and cooperative, but disorganized during the assessment. DDx: R/O Schizoaffective DO, R/O Substance Induced Mood DO Recommendation/Plan: Continue 1013 with placemment to inpatient psy services. Continue home meds: Risperdal 1mg po hs, Remeron 7.5mg po hs, and cogentin 0.5mg po hs. Discussed possible metabolic side effects of Risperdal with patient. Discussed possible suicidality/medication induced bert with patient reference Remeron. Masonry Installer involvement, the patient is homeless.
[2017-12-20] MEDS: MACROBID PO SCH ×2 (11:39→22:12)
[2017-12-20] MEDS: REMERON PO SCH (22:12)
[2017-12-20] MEDS: COGENTIN PO SCH (22:12)
[2017-12-20] MEDS: RisperDAL PO SCH (22:12)
[2017-12-21] MEDS: MACROBID PO SCH ×2 (10:35→21:55)
[2017-12-21] MEDS: COGENTIN PO SCH (21:55)
[2017-12-21] MEDS: REMERON PO SCH (21:55)
[2017-12-21] MEDS: RisperDAL PO SCH (21:56)
[2017-12-21] MEDS ORDERED: TYLENOL PO ONE (22:15)
[2017-12-21] MEDS ORDERED: TYLENOL ONE (22:28)
--- NOTE | 2017-12-22 11:45 | Progress Note ---
Subjective - Reason for Consult Consult date: 12/22/17 Reason for consult: Psychiatry Follow-up - Chief Complaint Chief complaint: "I am feeling better" 42-year-old male with past medical history of bipolar disorder, remote history of alcohol use disorder, and current cocaine use disorder presents to the hospital stating that he is having a mental break. This patient is known to me. Today the patient is calm and cooperative during the assessment. He stated that he is feeling better, but concerned about his living arrangements when discharged. He stated that he is feeling "somewhat suicidal." He denies HI's and AVH's. He denies any side effects of his medication. Mental Status Exam - Vital signs Last Vital Signs Temp 98.6 F 12/21/17 22:00 Pulse 88 12/21/17 22:00 Resp 18 12/21/17 22:00 BP 124/80 12/21/17 22:00 Pulse Ox 100 12/21/17 22:00 - Exam Narrative exam: MSE: Appearance: calm, cooperative Behavior: regular eye contact Speech: regular rate and tone Mood: "okay" Affect: congruent to mood Thought Process: circumstantial Thought Content: denies HI's and AVH's, intermittent SI's Motor Activity: ambulatory Cognition: A/O x 3 Insight: variable Judgment: variable Assessment and Plan Impression: Hx of Bipolar DO. Cannabis Use DO. Today the patient is calm and cooperative during the assessment. DDx: R/O Schizoaffective DO, R/O Substance Induced Mood DO Recommendation/Plan: Continue 1013 with placement to inpatient psy services. Continue home meds: Risperdal 1mg po hs, Remeron 7.5mg po hs, and cogentin 0.5mg po hs. Discussed possible metabolic side effects of Risperdal with patient. Discussed possible suicidality/medication induced bert with patient reference Remeron. House Detective involvement, the patient is homeless.
[2017-12-22] MEDS: RisperDAL PO SCH (21:39)
[2017-12-22] MEDS: COGENTIN PO SCH (21:39)
[2017-12-22] MEDS: REMERON PO SCH (21:39)
--- NOTE | 2017-12-23 11:53 | Progress Note ---
Subjective - Reason for Consult Consult date: 12/23/17 Reason for consult: Psychiatry Follow-up - Chief Complaint Chief complaint: "Hello" 42-year-old male with past medical history of bipolar disorder, remote history of alcohol use disorder, and current cocaine use disorder presents to the hospital stating that he is having a mental break. This patient is known to me. Today the patient is calm and cooperative during the assessment. He denies SI/HI 's and AVH's. He stated that he was "very sleepy." Mental Status Exam - Vital signs Last Vital Signs Temp 98.4 F 12/22/17 18:45 Pulse 82 12/22/17 18:45 Resp 18 12/22/17 18:45 BP 104/65 12/22/17 18:45 Pulse Ox 98 12/22/17 18:45 - Exam Narrative exam: MSE: Appearance: calm, cooperative Behavior: regular eye contact Speech: regular rate and tone Mood: "okay" Affect: congruent to mood Thought Process: circumstantial Thought Content: denies SI/HI's and AVH's Motor Activity: ambulatory Cognition: A/O x 3 Insight: fair Judgment: fair Assessment and Plan Impression: Hx of Bipolar DO. Cannabis Use DO. Today the patient is calm and cooperative during the assessment. DDx: R/O Schizoaffective DO, R/O Substance Induced Mood DO Recommendation/Plan: Evaluate 1013 in 24 hours to determine proper dispo. Continue home meds: Risperdal 1mg po hs, modify Remeron to 15 mg po hs, and cogentin 0.5mg po hs. Discussed possible metabolic side effects of Risperdal with patient. Discussed possible suicidality/medication induced bert with patient reference Remeron. Woodwind Reeds Cutter involvement, the patient is homeless.
[2017-12-23] MEDS ORDERED: REMERON SOLUTAB PO SCH (22:00)
[2017-12-23] MEDS: COGENTIN PO SCH (22:28)
[2017-12-23] MEDS: REMERON PO SCH (22:28)
[2017-12-23] MEDS: RisperDAL PO SCH (22:28)
[2017-12-24] MEDS ORDERED: TYLENOL PO ONE (17:33)
[2017-12-24] MEDS ORDERED: KEFLEX PO ONE (18:33)
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
[2017-12-24] MEDS: REMERON PO SCH (22:28)
[2017-12-24] MEDS: RisperDAL PO SCH (22:28)
[2017-12-24] MEDS: COGENTIN PO SCH (22:28)
--- NOTE | 2017-12-25 15:15 | Progress Note ---
Subjective - Reason for Consult Consult date: 12/25/17 Reason for consult: follow up - Chief Complaint Chief complaint: "Not good." 42-year-old male with past medical history of bipolar disorder, remote history of alcohol use disorder, and current cocaine use disorder presents to the hospital stating that he is having a mental break. This patient is known to me. Today the patient is calm and cooperative during the assessment. 1013 signed yesterday again due to SI with plan to cut wrists or step out in front of [employer] train. AH present telling him he is no good. He reports his condition is unchanged. Mental Status Exam - Vital signs Last Vital Signs Temp 98.3 F 12/25/17 08:06 Pulse 68 12/25/17 08:06 Resp 16 12/25/17 08:07 BP 102/77 12/25/17 08:06 Pulse Ox 100 12/25/17 08:07 - Exam Narrative exam: MSE: Appearance: calm, cooperative Behavior: regular eye contact Speech: regular rate and tone Mood: "bad" Affect: congruent to mood Thought Process: circumstantial Thought Content: SI/HI and AH Motor Activity: ambulatory Cognition: A/O x 3 Insight: fair Judgment: fair Assessment and Plan Impression: Hx of Bipolar DO. Cannabis Use DO. Today the patient is calm and cooperative during the assessment. He reports SI and AH. Consider report of symptoms as attempt for secondary gain. DDx: R/O Schizoaffective DO, R/O Substance Induced Mood DO Recommendation/Plan: 1013 signed again yesterday. Continue home meds: Risperdal 1mg po hs, modify Remeron to 15 mg po hs, and cogentin 0.5mg po hs. Automatic Fancy Machine Operator involvement, the patient is homeless.
[2017-12-25] MEDS: RisperDAL PO SCH (22:47)
[2017-12-25] MEDS: REMERON PO SCH (22:47)
[2017-12-25] MEDS: COGENTIN PO SCH (22:47)
--- NOTE | 2017-12-26 10:34 | Progress Note ---
Subjective - Reason for Consult Consult date: 12/26/17 Reason for consult: Psychiatry Follow-up - Chief Complaint Chief complaint: "Hughlo" 42-year-old male with past medical history of bipolar disorder, remote history of alcohol use disorder, and current cocaine use disorder presents to the hospital stating that he is having a mental break. This patient is known to me. Today the patient is calm and cooperative during the assessment. He stated that he has days of feeling suicidal. He stated today is he "somewhat suicidal." He stated that he has no plan for his life and that bother's him. He denies HI's and VH's. He stated that the voices come and go, but more active at night. He denies any side effects of his medications. Mental Status Exam - Vital signs Last Vital Signs Temp 98 F 12/25/17 20:00 Pulse 71 12/25/17 20:00 Resp 18 12/26/17 03:25 BP 101/59 12/25/17 20:00 Pulse Ox 100 12/25/17 20:00 - Exam Narrative exam: MSE: Appearance: calm, cooperative Behavior: regular eye contact Speech: regular rate and tone Mood: "down" sad Affect: congruent to mood Thought Process: circumstantial Thought Content: HI and AH Motor Activity: ambulatory Cognition: A/O x 3 Insight: fair Judgment: fair Assessment and Plan Impression: Hx of Bipolar DO. Cannabis Use DO. Today the patient is calm and cooperative during the assessment. DDx: R/O Schizoaffective DO, R/O Substance Induced Mood DO Recommendation/Plan: Continue 1013 with placement to inpatient psy services. Continue home meds: Modify Risperdal to 2mg po hs, and continue Remeron 15 mg po hs, and cogentin 0.5mg po hs. Discussed possible metabolic side effects of Risperdal with patient. Discussed possible suicidality/medication induced bert with patient reference Remeron.
[2017-12-26] MEDS ORDERED: RisperDAL PO SCH (22:00)
[2017-12-26] MEDS: COGENTIN PO SCH (22:05)
[2017-12-26] MEDS: REMERON PO SCH (22:05)
[2017-12-27 08:33] VITALS: BP 114/64
== END 2017-12-27 10:15 ==
LOC: EEVIPCON 21:54 → ED 21:54
DX: F32.9 Major depressive disorder, single episode, unspecified (principal); R45.851 Suicidal ideations; M19.90 Unspecified osteoarthritis, unspecified site; F17.200 Nicotine dependence, unspecified, uncomplicated
CPT/HCPCS: 36415; 80048; 80307; 81001; 85025; 87086; 99285; G0480; 80320